=== PATIENT | male | born 1970 | race Caucasian/White ===

== ENCOUNTER 2022-01-08 17:21 | Emergency (ER) | payer OTHER, SELFPAY ==
--- NOTE | ~2022-01-08 | US_ITS ---
EXAMINATION: NONINVASIVE ASSESSMENT OF THE ARTERIES OF RIGHT LOWER EXTREMITY Peter Frias MD CLINICAL INFORMATION: Delayed capillary refill with swelling and right lower extremity wound TECHNIQUE: Right lower extremity duplex ultrasound was performed with velocity measurements and waveform analysis in the common femoral arteries, profunda femoris arteries, proximal mid and distal superficial femoral arteries, popliteal arteries and tibial vessels. This study was performed only at rest. COMPARISON: None FINDINGS: Velocities in cm/sec and phasicity are reported below. Right LEG: There is triphasic flow present in the common femoral artery with biphasic flow in the profunda femoris artery and monophasic flow noted throughout the remainder of the lower extremity. Common Femoral: 132 Profunda Femoris: 42 Proximal SFA: 119 Mid SFA: 116 Distal SFA: 124 Popliteal: 125 Peroneal: 214 Posterior tibial artery: 74 US/US arterial duplex LE RT IMPRESSION: Multiphasic flow in the common femoral and profunda femoris artery with monophasic flow throughout the SFA and visualized distal runoff. A discrete focal stenosis is not seen. CT angiography of the abdomen, pelvis and runoff may be useful for further evaluation.
--- NOTE | ~2022-01-08 | US_ITS ---
EXAMINATION: US VENOUS ULTRASOUND WITH DOPPLER LOWER EXTREMITY, RIGHT CLINICAL INFORMATION: Right lower extremity pain, swelling and discoloration COMPARISON: CT abdomen pelvis 12/02/2007 TECHNIQUE: Ultrasound of the deep veins is performed from the hip to the calf with compression sonography and color and pulse Doppler assessment. Spectral analysis with color-flow imaging is performed. FINDINGS: There is normal venous compression and respiratory variation and augmented flow. The visualized common femoral vein, superficial femoral vein, profunda femoral vein, popliteal vein, and the trifurcation region shows no evidence of deep venous thrombosis. There is no significant popliteal fossa cyst. Multiple enlarged lymph nodes are present in the right groin the largest measuring 2.4 x 1.3 x 1.6 cm. Lymph nodes appear morphologically normal with large fatty alma rosa. If the patient's symptoms persist, followup ultrasound in 5 days 7 days might be of value to exclude proximal propagation from a non-visualized calf vein. US/US venous duplex LE RT IMPRESSION: No DVT demonstrated in the right lower extremity.
[2022-01-08 18:32] VITALS: BP 140/70; PULSE 72; RESP 18; TEMP 36.6; O2SAT 98; BMI 25.7
[2022-01-08 18:45] LABS: MANUAL DIFF FLAG NO
[2022-01-08 18:50] LABS: Basophils Percent Auto 0.3 % (0-2); Eosinophils Absolute Auto 0.2 X10*3/uL (0.0-0.4); Eosinophils Percent Auto 2.5 % (0-4); Hematocrit 39.3 % (42.0-52.0); Hemoglobin 12.9 g/dl (14.0-18.0); Imm Gran Abs Auto 0.02 X10*3/uL (0.00-0.03); Imm Gran Pct Auto 0.3 % (0.0-0.4); Lymphocytes Absolute Auto 1.9 X10*3/uL (1.2-4.9); Lymphocytes Percent Auto 25.7 % (20-40); Mean Corpuscular HGB Conc 32.8 g/dl (31.0-36.0); Mean Corpuscular Hemoglobin 27.7 pg (27.0-33.0); Mean Corpuscular Volume 84.5 fL (80.0-98.0); Mean Platelet Volume 12.1 fL (9.4-12.4); Monocytes Absolute Auto 0.9 X10*3/uL (0.1-1.2); Monocytes Percent Auto 12.4 % (2-11); Neutrophils Absolute Auto 4.4 x10*3/uL (2.0-8.3); Neutrophils Percent Auto 58.8 % (45-73); Red Blood Count 4.65 X10*6/uL (4.60-5.80); Red Cell Distribution Width 14.3 % (11.0-16.0); White Blood Count 7.5 X10*3/uL (4.8-10.8)
[2022-01-08 19:00] LABS: INTERNATIONAL NORM RATIO 2.9 (0.9-1.1); Prothrombin Time 35.2 SEC (10.0-13.1)
[2022-01-08 19:02] LABS: COVID-19 Test Negative (Negative)
[2022-01-08 19:08] LABS: Platelet Count 71 X10*3/uL (160-400)
[2022-01-08 19:17] LABS: Alanine Aminotransferase 19 U/L (0-40); Albumin Level 4.1 g/dL (3.5-5.0); Alkaline Phosphatase 73 U/L (39-117); Anion Gap 12 (12-20); Aspartate Amino Transferase 23 U/L (5-37); Bilirubin Total 1.3 mg/dL (0.0-1.0); Blood Urea Nitrogen 12 mg/dL (9-16); Carbon Dioxide 33 mmol/L (22-29); Chloride 99 mmol/L (96-108); Creatinine Clr Calc Pharmacy 129.1; Estimated Glomerular Filt Rate > 60; Glucose Random 90 mg/dL (60-115); Potassium 4.1 mmol/L (3.3-5.1); Sodium 140 mmol/L (135-145); Total Protein 7.1 g/dL (6.5-8.0)
--- NOTE | 2022-01-08 21:45 | ED_ITS ---
HPI - Extremity Problem General Chief complaint: Extremity Problem Stated complaint: ? DVT R Leg Source: patient Mode of arrival: ambulatory Limitations: no limitations History of Present Illness HPI Narrative: 51-year-old male presents from urgent care for evaluation of right lower extremity wound, swelling, discoloration states that he walked into something last and had a wound to the lateral aspect of the lower right extremity, then noted increasing swelling, redness, and significant discoloration to the toes consistent with bruising. He does take Coumadin for AFib, has history of Marfan syndrome, aortic root dilation. He denies fevers, chills, chest pain or pressure, palpitations, shortness breath, abdominal pain, abdominal distention, dysuria, hematuria,. MD Complaint: extremity pain and extremity swelling Onset (ago): week(s) (1) Pain Consistency: constant Location: right and lower extremity Severity scale (1-10): 6 Quality: aching and constant Radiation: none Relieving factors: elevation Exacerbating factors: range of motion, weight bearing, walking and palpation Associated symptoms: denies other symptoms Related Data Previous Rx's Medication Instructions Recorded cefuroxime axetil 500 mg tablet 500 mg PO Q12H 10 days #20 tabs 01/09/22 doxycycline monohydrate 100 mg 100 mg PO BID 10 days #20 caps 01/09/22 capsule Allergies Allergy/AdvReac Type Severity Reaction Status Date / Time Penicillins [PCN] Allergy Rash Verified 01/08/22 18:30 Review of Systems Review of Systems: Constitutional: No Fever, No Chills ENT/Mouth: No Ear Pain, No Hoarseness, No sore throat Eyes: No Eye Pain, No Swelling, No Redness, No Foreign Body Cardiovascular: No Chest Pain, No SOB Respiratory: No Cough, No Dyspnea Gastrointestinal: No Nausea, No Vomiting, No Diarrhea, No abdominal Pain Genitourinary: No Dysuria, No Hematuria Musculoskeletal: positive lower extremity pain, positive swelling to rle, No Myalgias, No Joint Swelling Skin: Positive right lower extremity wound, positive bruising discoloration to all toes, No Skin lacerations, No rash Neuro: No Weakness, No Numbness, No Paresthesias, No Loss of Consciousness, No Dizziness, No Headache Psych: No Anxiety/Panic, No Depression Heme/Lymph: no easy bruising, no Lymphadenopathy Endocrine: No Polyuria, No Polydipsia Yes all other systems are reviewed and are negative [facility] Past Medical History Attestation statement: The following information was validated with the patient. Source: old records reviewed Social History Social History Advance Directives: No Advance Directives Information Provided: No Physical Exam Vital Signs: Vital Signs: Last Vital Signs Temp 97.8 F 01/08/22 18:32 Pulse 69 01/08/22 22:19 Resp 18 01/08/22 22:19 BP 125/64 01/08/22 22:19 Pulse Ox 99 01/08/22 22:19 O2 Del Method 01/08/22 22:19 BMI result Body Mass Index 25.7 Appearance: Alert. Oriented X3. No acute distress. Eyes: Pupils equal, round and reactive to light. ENT: Pharynx normal. Neck: Normal inspection. Neck supple. CVS: Normal heart rate and rhythm. Pulses normal. Respiratory: No respiratory distress. Breath sounds normal. Abdomen: Soft and nontender. Skin: Erythematous from mid meneses to digits, bruising and discoloration to the lateral aspect of the foot circumferential to toes and heel. Open oozing wound to the right lateral lower extremity. Please refer to pictures for full details. Extremities: Right lower extremity edema. Full range of motion to all extremities. Gait well-balanced well coordinated. Delayed capillary refill with equal pulses. Neuro: No motor deficit. No sensory deficit. Cranial nerves 2-12 intact. Course Course Course Narrative: 51-year-old male presents from urgent care for evaluation of right lower extremity discoloration, wound, and edema. Labs drawn while patient was in the emergency department waiting room, platelets are 71, PT INR 35.2/2.9 on Coumadin for AFib, chemistries are within normal limits. COVID is negative, venous duplex is negative for acute findings. Patient does have decreased capillary re fill to the right lower extremity, and bilaterally equal pulses. Strength is 5/5. Will order arterial duplex will provide wound cleaning. And dressing. Will treat with ceftriaxone for cellulitis. 00:29 arterial duplex is negative. Will discharge home with antibiotics for cellulitis. Patient verbalized understanding of and agrees plan of care discharge home. Verbalized understanding of signs symptoms indicating need for emergent intervention. MDM - Extremity (Nontraumatic) Differential Diagnosis Differential diagnosis: Likely cellulitis, superficial thrombophlebitis, lower extremity edema and deep vein thrombosis of lower extremity Medical Records Attestation: I reviewed the patient's medical records. Lab Data Attestation: I reviewed the patient's lab results. Result diagrams: 01/08/22 18:41 01/08/22 18:40 Labs: Lab Results 01/08/22 01/08/22 01/08/22 Range/Units 18:37 18:40 18:41 WBC 7.5 (4.8-10.8) X10*3/uL RBC 4.65 (4.60-5.80) X10*6/uL Hgb 12.9 L (14.0-18.0) g/dl Hct 39.3 L (42.0-52.0) % MCV 84.5 (80.0-98.0) fL MCH 27.7 (27.0-33.0) pg MCHC 32.8 (31.0-36.0) g/dl RDW 14.3 (11.0-16.0) % Plt Count 71 L (160-400) X10*3/uL MPV 12.1 (9.4-12.4) fL Immature Gran % (Auto) 0.3 (0.0-0.4) % Neut % (Auto) 58.8 (45-73) % Lymph % (Auto) 25.7 (20-40) % [place] % (Auto) 12.4 H (2-11) % Eos % (Auto) 2.5 (0-4) % Baso % (Auto) 0.3 (0-2) % Lymph # (Auto) 1.9 (1.2-4.9) X10*3/uL [place] # (Auto) 0.9 (0.1-1.2) X10*3/uL Eos # (Auto) 0.2 (0.0-0.4) X10*3/uL Baso # (Auto) 0.0 (0.0-0.2) X10*3/uL Abs Immat Gran (auto) 0.02 (0.00-0.03) X10*3/uL Absolute Neuts (auto) 4.4 (2.0-8.3) x10*3/uL Absolute Nucleated RBC 0.000 (0.0-0.012) X10*3/uL Nucleated RBC % (auto) 0.0 (0.0-0.2) /100WBC PT (10.0-13.1) SEC INR (0.9-1.1) Sodium 140 (135-145) mmol/L Potassium 4.1 (3.3-5.1) mmol/L Chloride 99 (96-108) mmol/L Carbon Dioxide 33 H (22-29) mmol/L Anion Gap 12 (12-20) BUN 12 (9-16) mg/dL Creatinine 0.84 (0.5-1.4) mg/dL Estim Creat Clear Calc 129.1 Estimated GFR > 60 Random Glucose 90 (60-115) mg/dL Calcium 9.0 (8.4-10.2) mg/dL Total Bilirubin 1.3 H (0.0-1.0) mg/dL AST 23 (5-37) U/L ALT 19 (0-40) U/L Alkaline Phosphatase 73 (39-117) U/L Total Protein 7.1 (6.5-8.0) g/dL Albumin 4.1 (3.5-5.0) g/dL COVID-19 (NOEMÍ) Negative (Negative) COVID-19 Clin Com See Note 01/08/22 Range/Units 18:41 WBC (4.8-10.8) X10*3/uL RBC (4.60-5.80) X10*6/uL Hgb (14.0-18.0) g/dl Hct (42.0-52.0) % MCV (80.0-98.0) fL MCH (27.0-33.0) pg MCHC (31.0-36.0) g/dl RDW (11.0-16.0) % Plt Count (160-400) X10*3/uL MPV (9.4-12.4) fL Immature Gran % (Auto) (0.0-0.4) % Neut % (Auto) (45-73) % Lymph % (Auto) (20-40) % [place] % (Auto) (2-11) % Eos % (Auto) (0-4) % Baso % (Auto) (0-2) % Lymph # (Auto) (1.2-4.9) X10*3/uL [place] # (Auto) (0.1-1.2) X10*3/uL Eos # (Auto) (0.0-0.4) X10*3/uL Baso # (Auto) (0.0-0.2) X10*3/uL Abs Immat Gran (auto) (0.00-0.03) X10*3/uL Absolute Neuts (auto) (2.0-8.3) x10*3/uL Absolute Nucleated RBC (0.0-0.012) X10*3/uL Nucleated RBC % (auto) (0.0-0.2) /100WBC PT 35.2 H (10.0-13.1) SEC INR 2.9 H (0.9-1.1) Sodium (135-145) mmol/L Potassium (3.3-5.1) mmol/L Chloride (96-108) mmol/L Carbon Dioxide (22-29) mmol/L Anion Gap (12-20) BUN (9-16) mg/dL Creatinine (0.5-1.4) mg/dL Estim Creat Clear Calc Estimated GFR Random Glucose (60-115) mg/dL Calcium (8.4-10.2) mg/dL Total Bilirubin (0.0-1.0) mg/dL AST (5-37) U/L ALT (0-40) U/L Alkaline Phosphatase (39-117) U/L Total Protein (6.5-8.0) g/dL Albumin (3.5-5.0) g/dL COVID-19 (NOEMÍ) (Negative) COVID-19 Clin Com Imaging Data Venous and arterial duplex: Attestation: I personally reviewed and interpreted this imaging study as follows: Radiologist's impression: EXAMINATION:? US VENOUS ULTRASOUND WITH DOPPLER LOWER EXTREMITY, RIGHT CLINICAL INFORMATION:? Right lower extremity pain, swelling and discoloration COMPARISON:? CT abdomen pelvis 12/02/2007 TECHNIQUE: Ultrasound of the deep veins is performed from the hip to the calf with compression sonography and color and pulse Doppler assessment. Spectral analysis with color-flow imaging is performed. FINDINGS: There is normal venous compression and respiratory variation and augmented flow. The visualized common femoral vein, superficial femoral vein, profunda femoral vein, popliteal vein, and the trifurcation region shows no evidence of deep venous thrombosis. ? There is no significant popliteal fossa cyst. Multiple enlarged lymph nodes are present in the right groin the largest measuring 2.4 x 1.3 x 1.6 cm. Lymph nodes appear morphologically normal with large fatty alma rosa. If the patient's symptoms persist, followup ultrasound in 5 days 7 days might be of value to exclude proximal propagation from a non-visualized calf vein. US/US venous duplex LE RT IMPRESSION: No DVT demonstrated in the right lower extremity. EXAMINATION: NONINVASIVE ASSESSMENT OF THE ARTERIES OF RIGHT LOWER EXTREMITY Peter Frisa MD CLINICAL INFORMATION: Delayed capillary refill with swelling and right lower extremity wound TECHNIQUE: Right lower extremity duplex ultrasound was performed with velocity measurements and waveform analysis in the common femoral arteries, profunda femoris arteries, proximal mid and distal superficial femoral arteries, popliteal arteries and tibial vessels. This study was performed only at rest. COMPARISON: None FINDINGS: Velocities in cm/sec and phasicity are reported below. Right LEG: There is triphasic flow present in the common femoral artery with biphasic flow in the profunda femoris artery and monophasic flow noted throughout the remainder of the lower extremity. Common Femoral: 132 Profunda Femoris: 42 Proximal SFA: 119 Mid SFA: 116 Distal SFA: 124 Popliteal: 125 Peroneal: 214 Posterior tibial artery: 74 US/US arterial duplex LE RT IMPRESSION: Multiphasic flow in the common femoral and profunda femoris artery with monophasic flow throughout the SFA and visualized distal runoff. A discrete focal stenosis is not seen. CT angiography of the abdomen, pelvis and runoff may be useful for further evaluation. Discharge Plan Discharge Clinical Impression: Cellulitis Patient Disposition: Home, Self-Care Instructions: Cellulitis (ED) Additional Instructions: You were evaluated for right lower leg swelling discoloration and wound. Venous and arterial duplexes are negative for DVT and emergent findings. Please follow-up with primary care physician this week. Take cefuroxime 500 mg twice a day for next 10 days and doxycycline 100 mg twice a day for the next 10 days. These medications are antibiotics. Doxycycline has a photosensitive skin reaction, please wear hat, sunscreen and long sleeves when going outdoors. If you noticed decreased sensation, decreased capillary refill, decreased range of motion to the lower extremity please return to the emergency department immediately. Thank you for choosing this emergency department for evaluation. Please follow-up with primary care physician as needed. Return to the emergency department for any new, concerning, or worsening symptoms. Prescriptions: New doxycycline monohydrate 100 mg capsule 100 mg PO BID 10 Days Qty: 20 0RF cefuroxime axetil 500 mg tablet 500 mg PO Q12H 10 Days Qty: 20 0RF Stand Alone Forms: Work/School Release
[2022-01-08 22:19] VITALS: BP 125/64; PULSE 69; RESP 18; O2SAT 99
[2022-01-08] MEDS: cefTRIAXone sodium 1 GM in 0.9 % Sodium Chloride 50 ML IV (22:30)
== END 2022-01-09 00:30 | disposition home or self-care (01) ==
PROVIDERS: Emergency Provider Emergency Medicine; PCP Ophthalmology
DX: L03.115 Cellulitis of right lower limb (principal); M79.661 Pain in right lower leg; R60.0 Localized edema; Z20.822 Contact with and (suspected) exposure to COVID-19; I48.91 Unspecified atrial fibrillation; Z79.01 Long term (current) use of anticoagulants
CPT/HCPCS: 80053; 85025; 85610; 87635; 93926; 93971; 96365; 99284; J0696